=== PATIENT | male | born 1995 | race Caucasian/White ===

== ENCOUNTER 2018-06-28 14:29 | Emergency (ER) | payer BC ==
--- NOTE | 2018-06-28 14:45 | EDM.PDOC ---
ED HPI GENERAL MEDICAL PROBLEM - General Chief Complaint: Cardiovascular Problem Stated Complaint: DIZZYNESS Time Seen by Provider: 06/28/18 14:41 Source of Information: Reports: Patient History Limitations: Reports: No Limitations - History of Present Illness INITIAL COMMENTS - FREE TEXT/NARRATIVE: HISTORY AND PHYSICAL: History of present illness: Patient is a 23-year-old male who presents to the emergency room with complaints of dizziness, anxiety and nausea and generally feeling "unwell". She states that he recently moved out of his parent's house 3 days ago and has been living on his own. Over the past 3 days he has had increased anxiety. Within the last hour he felt like he was hyperventilating and had become dizzy. He has a history of anxiety and has previously used his mom and sisters Ativan as needed, but never had a prescription of his own. Denies any fever, chills, chest pain, syncope or visual changes. Denies any abdominal pain, vomiting, diarrhea, constipation or dysuria. Denies any alcohol or drug abuse. Review of systems: As per history of present illness and below otherwise all systems reviewed and negative. Past medical history: As per history of present illness and as reviewed below otherwise noncontributory. Surgical history: As per history of present illness and as reviewed below otherwise noncontributory. Social history: No reported history of drug or alcohol abuse. Family history: As per history of present illness and as reviewed below otherwise noncontributory. Physical exam: General: Well-developed and well-nourished 23-year-old male. Alert and oriented. Nontoxic but anxious appearing and in no acute distress. HEENT: Atraumatic, normocephalic, pupils equal and reactive bilaterally, negative for conjunctival pallor or scleral icterus, mucous membranes moist, throat clear, neck supple, nontender, trachea midline. No drooling or trismus noted. No meningeal signs Lungs: Clear to auscultation, breath sounds equal bilaterally, chest nontender. Heart: S1S2, regular rate and rhythm without overt murmur Abdomen: Soft, nondistended, nontender. Negative for masses or hepatosplenomegaly. Negative for costovertebral tenderness. Pelvis: Stable nontender. Genitourinary: Deferred. Rectal: Deferred. Skin: Intact, warm, dry. No lesions or rashes noted. Extremities: Atraumatic, negative for cords or calf pain. Neurovascular unremarkable. Neuro: Awake, alert, oriented. Cranial nerves II through XII unremarkable. Cerebellum unremarkable. Motor and sensory unremarkable throughout. Exam nonfocal. Notes: Patient appears very anxious and fidgety well performing my physical examination. He is agreeable to routine lab work along with IV fluid and medication. Lab work is unremarkable. Patient feels improved after the IV fluids and medication. He does have a ride to home. Encouraged him to follow-up with a primary care provider for further evaluation and management of his anxiety. He voices understanding and is agreeable to plan of care. Denies any further questions or concerns at this time. Diagnostics: CBC, CMP Therapeutics: IV fluids, Zofran, Ativan Prescription: None Impression: Anxiety Plan: 1. Please do not drive for the rest of the day, as the medication he received here will cause sedation. 2. Follow-up with a primary care provider in the next 1-2 days for further evaluation and management. Return to the ED as needed and as discussed. Definitive disposition and diagnosis as appropriate pending reevaluation and review of above. Duration: Day(s): - Related Data Allergies Allergy/AdvReac Type Severity Reaction Status Date / Time No Known Allergies Allergy Verified 06/28/18 14:35 Home Meds: Home Meds . [No Known Home Meds] 06/28/18 [History] Past Medical History - Past Health History Medical/Surgical History: Denies Medical/Surgical History Social & Family History - Family History Family Medical History: Noncontributory - Tobacco Use Smoking Status *Q: Never Smoker Second Hand Smoke Exposure: No - Caffeine Use Caffeine Use: Reports: None - Recreational Drug Use Recreational Drug Use: No ED ROS GENERAL - Review of Systems Review Of Systems: ROS reveals no pertinent complaints other than HPI. ED EXAM, GENERAL - Physical Exam Exam: See Below (See dictation) Course - Vital Signs Last Recorded V/S: Last Vital Signs Temp 97.6 F 06/28/18 14:31 Pulse 111 H 06/28/18 14:31 Resp 18 06/28/18 14:31 BP 163/80 H 06/28/18 14:31 Pulse Ox - Orders/Labs/Meds Orders: Active Orders 24 hr Category Date Time Status Sodium Chloride 0.9% [Normal Saline] 1,000 ml Med 06/28/18 14:40 Active IV STAT Medication Orders Sodium Chloride (Normal Saline) 1,000 mls @ 999 mls/hr IV STAT ONE Stop: 06/28/18 15:40 Last Admin: 06/28/18 15:10 Dose: 999 mls/hr Labs: Laboratory Tests 06/28/18 06/28/18 Range/Units 14:51 14:51 WBC 6.41 (4.0-11.0) K/uL RBC 5.10 (4.50-5.90) M/uL Hgb 16.2 (13.0-17.0) g/dL Hct 43.2 (38.0-50.0) % MCV 84.7 (80.0-98.0) fL MCH 31.8 (27.0-32.0) pg MCHC 37.5 H (31.0-37.0) g/dL RDW Std Deviation 36.7 (28.0-62.0) fl RDW Coeff of Aris 12 (11.0-15.0) % Plt Count 202 (150-400) K/uL MPV 8.80 (7.40-12.00) fL Neut % (Auto) 55.1 (48.0-80.0) % Lymph % (Auto) 34.6 (16.0-40.0) % [place] % (Auto) 6.4 (0.0-15.0) % Eos % (Auto) 3.6 (0.0-7.0) % Baso % (Auto) 0.3 (0.0-1.5) % Neut # (Auto) 3.5 (1.4-5.7) K/uL Lymph # (Auto) 2.2 (0.6-2.4) K/uL [place] # (Auto) 0.4 (0.0-0.8) K/uL Eos # (Auto) 0.2 (0.0-0.7) K/uL Baso # (Auto) 0.0 (0.0-0.1) K/uL Nucleated RBC % 0.0 /100WBC Nucleated RBCs # 0 K/uL Sodium 138 (136-148) mmol/L Potassium 3.4 L (3.5-5.1) mmol/L Chloride 101 (98-107) mmol/L Carbon Dioxide 24.1 (21.0-32.0) mmol/L BUN 13 (7.0-18.0) mg/dL Creatinine 1.1 (0.8-1.3) mg/dL Est Cr Clr Drug Dosing 92.64 mL/min Estimated GFR (MDRD) > 60.0 ml/min Glucose 160 H (74-106) mg/dL Calcium 9.7 (8.5-10.1) mg/dL Total Bilirubin 0.2 (0.2-1.0) mg/dL AST 17 (15-37) IU/L ALT 19 (14-63) IU/L Alkaline Phosphatase 69 (46-116) U/L Total Protein 8.4 H (6.4-8.2) g/dL Albumin 4.7 (3.4-5.0) g/dL Globulin 3.7 H (2.0-3.5) g/dL Albumin/Globulin Ratio 1.3 (1.3-2.8) Meds: Medications Generic Name Dose Route Start Last Admin Trade Name Freq PRN Reason Stop Dose Admin Sodium Chloride 1,000 mls @ 999 mls/hr 06/28/18 14:40 06/28/18 15:10 Normal Saline IV 06/28/18 15:40 999 mls/hr STAT ONE Administration Discontinued Medications Generic Name Dose Route Start Last Admin Trade Name Freq PRN Reason Stop Dose Admin Lorazepam 0.5 mg 06/28/18 14:40 06/28/18 15:11 Ativan IVPUSH 06/28/18 14:41 0.5 mg ONETIME ONE Administration Ondansetron HCl 4 mg 06/28/18 14:40 06/28/18 15:14 Zofran IVPUSH 06/28/18 14:41 4 mg ONETIME ONE Administration Departure - Departure Time of Disposition: 15:31 Disposition: Home, Self-Care 01 Clinical Impression: Anxiety Instructions: Panic Attack, [id number] Forms: ED Department Discharge Additional Instructions: The following information is given to patients seen in the emergency department who are being discharged to home. This information is to outline your options for follow-up care. We provide all patients seen in our emergency department with a follow-up referral. The need for follow-up, as well as the timing and circumstances, are variable depending upon the specifics of your emergency department visit. If you don't have a primary care physician on staff, we will provide you with a referral. We always advise you to contact your personal physician following an emergency department visit to inform them of the circumstance of the visit and for follow-up with them and/or the need for any referrals to a consulting specialist. The emergency department will also refer you to a specialist when appropriate. This referral assures that you have the opportunity for follow-up care with a specialist. All of these measure are taken in an effort to provide you with optimal care, which includes your follow-up. Under all circumstances we always encourage you to contact your private physician who remains a resource for coordinating your care. When calling for follow-up care, please make the office aware that this follow-up is from your recent emergency room visit. If for any reason you are refused follow-up, please contact the [facility] Emergency Department at and asked to speak to the emergency department charge nurse. [facility] [address] [place] [id number] [facility] [address] [place] [id number] [address] Please do not drive for the rest of the day, as the medication he received here will cause sedation. 2. Follow-up with a primary care provider in the next 1-2 days for further evaluation and management. Return to the ED as needed and as discussed. - My Orders Last 24 Hours: My Active Orders 06/28/18 14:40 Sodium Chloride 0.9% [Normal Saline] 1,000 ml IV STAT - Assessment/Plan Last 24 Hours: My Active Orders 06/28/18 14:40 Sodium Chloride 0.9% [Normal Saline] 1,000 ml IV STAT
[2018-06-28] MEDS: Sodium Chloride 0.9% 1,000 ML IV ONE (15:10)
[2018-06-28] MEDS: LORazepam 2 MG/ML SDV IVPUSH ONE (15:11)
[2018-06-28] MEDS: Ondansetron 4 MG/2 ML SDV IVPUSH ONE (15:14)
[2018-06-28 15:27] LABS: CHLORIDE,CL 101 mmol/L (98-107); SODIUM,NA 138 mmol/L (136-148)
== END 2018-06-28 15:55 | disposition home or self-care (01) ==
LOC: MW.ED 14:29
DX: F41.9 Anxiety disorder, unspecified (principal)
CPT/HCPCS: 36415; 80053; 85025; 96361; 96374; 96375; 99284; J2060; J2405; J7040; 99283